=== PATIENT | male | born 1955 | race Two or more races ===

== ENCOUNTER 2019-01-02 09:14 | Emergency (ER) | payer MEDICARE, MEDICAID ==
[~2019-01-02] VITALS: Ht 177.8 cm; Wt 80.0 kg
[2019-01-02] MEDS ORDERED: HYDR-4135 PO (09:30)
[2019-01-02] MEDS ORDERED: ASPI-1159 PO (09:30)
[2019-01-02] MEDS ORDERED: ISOS20TA8 PO (09:30)
[2019-01-02] MEDS ORDERED: SIMV20TA6 PO (09:30)
[2019-01-02] MEDS ORDERED: HYDROCODONE/ACETAMINOPHEN 5/325MG TABLET PO ONE (10:15)
[2019-01-02 10:29] VITALS: BP 160/90
== END 2019-01-02 10:31 | disposition home or self-care (01) ==
LOC: ER 09:14
DX: M54.42 Lumbago with sciatica, left side (principal); E11.9 Type 2 diabetes mellitus without complications; I10 Essential (primary) hypertension; M19.90 Unspecified osteoarthritis, unspecified site; F12.10 Cannabis abuse, uncomplicated; Z79.82 Long term (current) use of aspirin; V43.62XA Car passenger injured in collision with other type car in traffic accident, initial encounter; Y93.89 Activity, other specified; Y92.488 Other paved roadways as the place of occurrence of the external cause
CPT/HCPCS: 99283